=== PATIENT | female | born 1990 | race African-American/Black ===

== ENCOUNTER 2019-11-02 02:02 | Observation (INO) | payer SELFPAY ==
--- NOTE | 2019-11-02 02:30 | PDOC ---
History of Present Illness - General Chief Complaint: Pain Stated Complaint: ABD PAIN Time Seen by Provider: 11/02/19 02:30 History Source: Patient Exam Limitations: No Limitations - History of Present Illness Initial Comments: 11/02/19 02:40 29yF w PMHx ovarian cysts presenting w sudden onset suprapubic pain while sitting down 1hr ago. Recently completed period 2d ago. Didnt take any meds for pain. Has copper IUD in place. Denies fever, n/v, ABD distension, dysuria, vaginal discharge/bleeding. Past History - Medical History Allergies/Adverse Reactions: Allergies Allergy/AdvReac Type Severity Reaction Status Date / Time No Known Allergies Allergy Verified 11/02/19 02:30 - Reproductive History Is Patient Now?: No - Psycho-Social/Smoking History Smoking History: Never smoked Information on smoking cessation initiated: No - Substance Abuse Hx (Audit-C & DAST Scrn) How often the patient has a drink containing alcohol: Never Score: In Men: 4 or > Positive; In Women: 3 or > Positive: 0 Screen Result (Pos requires Nsg. Audit-10AR): Negative In the last yr the pt used illegal drug/Rx for NonMed reason: No Score: Yes response is considered Positive: 0 Screen Result (Positive result requires Nsg. DAST-10): Negative Review of Systems - Review of Systems Constitutional: No: Chills, Fever HEENTM: No: Eye Pain, Nose Pain Respiratory: No: Cough, Shortness of Breath Cardiac (ROS): No: Chest Pain, Lightheadedness ABD/GI: No: Nausea, Vomiting : No: Burning, Dysuria Musculoskeletal: No: Back Pain, Joint Pain Integumentary: No: Bruising, Dryness Neurological: No: Headache, Seizure Psychiatric: No: Anxiety, Depression Endocrine: No: Intolerance to Cold, Intolerance to Heat Hematologic/Lymphatic: No: Anemia, Blood Clots *Physical Exam - Vital Signs Last Vital Signs Temp Pulse Resp BP Pulse Ox 97.9 F 64 18 114/75 98 11/02/19 02:24 11/02/19 02:24 11/02/19 02:24 11/02/19 02:24 11/02/19 02:24 - Physical Exam General Appearance: Yes: Nourished, Appropriately Dressed, Moderate Distress HEENT: positive: EOMI, AL, Normal Voice, Hearing Grossly Normal. negative: Scleral Icterus (R), Scleral Icterus (L) Respiratory/Chest: positive: Lungs Clear, Normal Breath Sounds. negative: Chest Tender, Respiratory Distress Cardiovascular: positive: Regular Rhythm, Regular Rate, S1, S2. negative: Edema, Murmur Female Pelvic Exam: positive: normal external exam, cervical os closed, normal adnexa. negative: CMT, discharge, adnexal tenderness, vaginal bleeding Gastrointestinal/Abdominal: positive: Normal Bowel Sounds, Tender (mild suprapubic), Flat, Soft. negative: Organomegaly Musculoskeletal: negative: CVA Tenderness (R), CVA Tenderness (L) Integumentary: positive: Normal Color, Warm Neurologic: positive: Fully Oriented, Alert, Normal Response, Responsive ED Treatment Course - LABORATORY CBC & Chemistry Diagram: 11/02/19 03:00 11/02/19 03:00 Medical Decision Making - Medical Decision Making 11/02/19 03:38 pelvic exam - IUD strings present, closed cervical os, no vaginal discharge/blood, no cervical/ovarian tenderness TVUS - L ovary 2.3x0.9x1.2cm cystic process w small amount of free fluid, satisfactory perfusion, no torsion CT A/P - --- 29yF w PMHx ovarian cysts presenting w sudden onset suprapubic pain while sitting down 1hr ago Has UTI and possible L ruptured cyst on US. Low concern for kidney stone (- blood) vs ovarian torsion (neg US) vs (neg) Ordered CT A/P for persistent pain after meds given Given tylenol, 6 morphine, 1L NS, zofran, pain partially relieved Anticipate DC w keflex, supportive care Signed out to day team - pending CT A/P PO+IV contrast r/o appendicitis vs abscess - DC home w keflex, tylenol/ibuprofen, PCP f/u Discharge - Discharge Information Problems reviewed: Yes Clinical Impression/Diagnosis: Left ovarian cyst, Suprapubic pain UTI (urinary tract infection) Qualifiers: Urinary tract infection type: acute cystitis Hematuria presence: without hematuria Qualified Code(s): N30.00 - Acute cystitis without hematuria Condition: Improved - Follow up/Referral - Patient Discharge Instructions - Post Discharge Activity
--- NOTE | 2019-11-02 02:36 | PDOC ---
Attending Attestation - Resident Resident Name: Mohamud Spain - ED Attending Attestation I have performed the following: I have examined & evaluated the patient, The case was reviewed & discussed with the resident, I agree w/resident's findings & plan - HPI HPI: 11/02/19 03:21 see resident hpi - Physicial Exam PE: 11/02/19 03:21 see resident exam - Medical Decision Making 11/02/19 03:21 29-year-old female with sudden onset of right-sided pelvic pain and history of ovarian cyst in the past Patient has tenderness to the right lower quadrant region Plan for labs, urinalysis and pelvic US 11/02/19 03:22 11/02/19 06:41 Ultrasound showed no ovarian torsion or mass CT scan the abdomen and pelvis ordered We will sign out to dayshift pending results Discharge - Discharge Information Problems reviewed: Yes Clinical Impression/Diagnosis: Left ovarian cyst, Suprapubic pain UTI (urinary tract infection) Qualifiers: Urinary tract infection type: acute cystitis Hematuria presence: without hematuria Qualified Code(s): N30.00 - Acute cystitis without hematuria Condition: Improved - Follow up/Referral - Patient Discharge Instructions - Post Discharge Activity
[2019-11-02] MEDS ORDERED: SODIUM CHLORIDE 0.9% 500 ML INFUS.BAG IV ONE (02:40)
[2019-11-02] MEDS ORDERED: ACETAMINOPHEN 1000 MG/100 ML VIAL (NON FORMULARY) IVPB ONE (02:40)
[2019-11-02] MEDS ORDERED: ACETAMINOPHEN INJECTION 100 ML IVPB ONE (02:43)
[2019-11-02 02:53] VITALS: BMI 21.9
[2019-11-02 03:15] LABS: BASO % 0.5 % (0-2.0); EOS % 1.4 % (0-4.5); HEMATOCRIT 36.8 % (32.4-45.2); LYMPH % 34.3 % (8-40); MCH 28.3 pg (25.7-33.7); MCHC 32.7 g/dl (32.0-36.0); MEAN CELL VOLUME 86.5 fl (80-96); MONO % 7.6 % (3.8-10.2); NEUT % 56.2 % (42.8-82.8); PLATELET COUNT 258 K/MM3 (134-434); RBC 4.25 M/mm3 (3.60-5.2); RDW 13.4 % (11.6-15.6); WHITE BLOOD COUNT 7.8 K/mm3 (4.0-10.0)
[2019-11-02] MEDS ORDERED: morphine CARPU-JECT 4 MG/1 ML DISP.SYRIN IVPUSH ONE ×3 (03:34→09:52)
[2019-11-02] MEDS ORDERED: morphine SULFATE 4 MG/ML VIAL ONE ×2 (03:39→09:53)
[2019-11-02 03:43] LABS: ALBUMIN 3.9 g/dl (3.4-5.0); BLOOD UREA NITROGEN 15.1 mg/dL (7-18); CALCIUM 8.7 mg/dL (8.5-10.1); CREATININE 0.8 mg/dL (0.55-1.3); POTASSIUM 3.5 mmol/L (3.5-5.1); TOT PROT 7.1 g/dl (6.4-8.2)
[2019-11-02 03:44] LABS: EPI CELLS >36 /uL (0-25.1); HYALINE CASTS 7 /uL (0-3.1); URINE APPEARANCE CLOUDY; URINE BACTERIA 2953 /uL (0-1359); URINE BILIRUBIN NEGATIVE (NEGATIVE); URINE COLOR YELLOW; URINE GLUCOSE (UA) NEGATIVE (NEGATIVE); URINE KETONE NEGATIVE (NEGATIVE); URINE LEUK ESTERASE 3+ (NEGATIVE); URINE NITRITE NEGATIVE (NEGATIVE); URINE PROTEIN NEGATIVE (NEGATIVE); URINE RBC 11 /uL (0-23.9); URINE WBC 361 /uL (0-25.8)
[2019-11-02 04:21] LABS: BILIRUBIN,TOTAL 0.2 mg/dL (0.2-1)
[2019-11-02] MEDS ORDERED: MORPHINE SULFATE 2 MG/ML VIAL ONE ×2 (05:01→16:56)
[2019-11-02] MEDS ORDERED: ONDANSETRON 4 MG/2 ML VIAL IVPUSH ONE ×2 (05:24→10:01)
--- NOTE | 2019-11-02 07:13 | PDOC ---
*Physical Exam - Vital Signs Last Vital Signs Temp Pulse Resp BP Pulse Ox 98 F 78 17 114/66 98 11/02/19 06:13 11/02/19 06:13 11/02/19 06:13 11/02/19 06:13 11/02/19 06:13 ED Treatment Course - LABORATORY CBC & Chemistry Diagram: 11/02/19 03:00 11/02/19 03:00 - ADDITIONAL ORDERS Additional order review: Laboratory Results 11/02/19 11/02/19 11/02/19 03:00 03:00 03:00 Sodium 140 Potassium 3.5 Chloride 106 Carbon Dioxide 26 Anion Gap 8 BUN 15.1 Creatinine 0.8 Est GFR (CKD-EPI)AfAm 117.10 Est GFR (CKD-EPI)NonAf 101.04 Random Glucose 103 Lactic Acid 1.7 Calcium 8.7 Total Bilirubin 0.2 AST 13 L ALT 14 Alkaline Phosphatase 45 Total Protein 7.1 Albumin 3.9 Lipase 107 Urine Color Urine Appearance Urine pH Ur Specific [place] Urine Protein Urine Glucose (UA) Urine Ketones Urine Blood Urine Nitrite Urine Bilirubin Urine Urobilinogen Ur Leukocyte Esterase Urine WBC (Auto) Urine RBC (Auto) Urine Casts (Auto) U Epithel Cells (Auto) Urine Bacteria (Auto) Urine HCG, Qual Negative 11/02/19 03:00 Sodium Potassium Chloride Carbon Dioxide Anion Gap BUN Creatinine Est GFR (CKD-EPI)AfAm Est GFR (CKD-EPI)NonAf Random Glucose Lactic Acid Calcium Total Bilirubin AST ALT Alkaline Phosphatase Total Protein Albumin Lipase Urine Color Yellow Urine Appearance Cloudy Urine pH 6.0 Ur Specific [place] 1.019 Urine Protein Negative Urine Glucose (UA) Negative Urine Ketones Negative Urine Blood Trace Urine Nitrite Negative Urine Bilirubin Negative Urine Urobilinogen 1.0 Ur Leukocyte Esterase 3+ H Urine WBC (Auto) 361 Urine RBC (Auto) 11 Urine Casts (Auto) 7 U Epithel Cells (Auto) >36 Urine Bacteria (Auto) 2953 Urine HCG, Qual 11/02/19 03:00 RBC 4.25 MCV 86.5 MCHC 32.7 RDW 13.4 MPV 11.0 Neutrophils % 56.2 Lymphocytes % 34.3 Monocytes % 7.6 Eosinophils % 1.4 Basophils % 0.5 - RADIOLOGY Radiology Studies Ordered: Abdomen / Pelvis CT Radiograph Interpretation: EXAM: ABDOMEN \T\ PELVIS CT WITH CONTR HISTORY: Severe suprapubic pain. Rule out appendicitis versus abscess COMPARISON: Pelvic ultrasound same date 11/02/19 FINDINGS: The visualized portion of the lungs are clear. Liver, gallbladder, spleen, pancreas, adrenal glands, and left kidney appear normal. Moderate right hydronephrosis with hydroureter. Right ureterovesical junction stone, measuring 2.1 mm. There is delayed enhancement and excretion of contrast in the right kidney as compared to the left. Second punctate, 1 mm nonobstructing intrarenal stone in the superior pole. Small amount of perinephric fluid. The bladder is minimally distended, otherwise appears normal. Uterus appears normal. Small amount of pelvic free fluid. The bowel gas pattern is nonobstructive. The ap pendix is visualized, and appears normal. No pneumoperitoneum. The abdominal aorta is normal in course and caliber, without evidence of aneurysm or dissection. Two left renal veins are noted, 1 of which is retroaortic in course. No significant retroperitoneal lymphadenopathy. The osseous structures are grossly intact. IMPRESSION: 1. Moderate right hydroureteronephrosis with right ureterovesical junction stone measuring 2.1 mm. Small amount of perinephric fluid. 2. Nonobstructive bowel gas pattern. Normal-appearing appendix. One or more of the following dose reduction techniques were used: automated exposure control, adjustment of the mA and/or kV according to patient size, use of iterative reconstructive technique. THIS DOCUMENT HAS BEEN ELECTRONICALLY SIGNED Janice Vanessa MD 11/02/2019 05:36 EST - Medications Given in the ED: ED Medications Discontinued Medications Generic Name Dose Route Start Last Admin Trade Name Freq PRN Reason Stop Dose Admin Acetaminophen 1,000 mg 11/02/19 02:40 11/02/19 02:55 Ofirmev Injection - IVPB 11/02/19 02:41 1,000 mg ONCE ONE Administration Morphine Sulfate 4 mg 11/02/19 03:34 11/02/19 03:44 Morphine Injection - IVPUSH 11/02/19 03:35 4 mg ONCE ONE Administration Morphine Sulfate 2 mg 11/02/19 04:57 11/02/19 05:06 Morphine Injection - IVPUSH 11/02/19 04:58 2 mg ONCE ONE Administration Ondansetron HCl 4 mg 11/02/19 05:24 11/02/19 05:35 Zofran Injection IVPUSH 11/02/19 05:25 4 mg ONCE ONE Administration Sodium Chloride 1,000 ml 11/02/19 02:40 11/02/19 02:55 Normal Saline - IV 11/02/19 02:41 1,000 ml ONCE ONE Administration Medical Decision Making - Medical Decision Making pelvic exam - IUD strings present, closed cervical os, no vaginal discharge/bloo d, no cervical/ovarian tenderness TVUS - L ovary 2.3x0.9x1.2cm cystic process w small amount of free fluid, satisfactory perfusion, no torsion CT A/P - --- 29yF w PMHx ovarian cysts presenting w sudden onset suprapubic pain while sitting down 1hr ago Has UTI and possible L ruptured cyst on US. Low concern for kidney stone (- blood) vs ovarian torsion (neg US) vs (neg) Ordered CT A/P for persistent pain after meds given Given tylenol, 6 morphine, 1L NS, zofran, pain partially relieved Signed out from night team - pending CT A/P PO+IV contrast r/o appendicitis vs abscess - DC home w keflex, tylenol/ibuprofen, PCP f/u --- Abdomen/Pelvis CT: Moderate right hydroureteronephrosis with right ureterovesical junction stone measuring 2.1mm. Pt given 30mg IV Toradol and 1000mg IV Ceftriaxone 11/02/19 10:49 -Given 4mg IV zofran and 4mg IV morphine -Consulted Dr. Toney, Urologist, who advised me to start 0.4mg tamsulosin and would see patient -Pt will be admitted to m/s for complicated UTI w/ obstructed stone with intractable vomiting and pain Discharge - Discharge Information Problems reviewed: Yes Clinical Impression/Diagnosis: Left ovarian cyst, Suprapubic pain UTI (urinary tract infection) Qualifiers: Urinary tract infection type: acute cystitis Hematuria presence: without hematuria Qualified Code(s): N30.00 - Acute cystitis without hematuria Condition: Improved - Admission Yes - Follow up/Referral - Patient Discharge Instructions - Post Discharge Activity
[2019-11-02] MEDS ORDERED: KETOROLAC TROMETHAMINE 60 MG/2 ML VIAL IVPUSH ONE (07:17)
[2019-11-02] MEDS ORDERED: KETOROLAC TROMETHAMINE 30 MG/1 ML VIAL ONE (07:43)
[2019-11-02] MEDS ORDERED: CEFTRIAXONE 1,000 MG in DEXTROSE 5%-WATER - 50 ML IVPB ONE (09:12)
[2019-11-02] MEDS ORDERED: CEFTRIAXONE 1 GM/50 ML BAG ONE (09:22)
[2019-11-02] MEDS ORDERED: SODIUM CHLORIDE 1,000 ML IV STA (09:52)
--- NOTE | 2019-11-02 10:25 | HP ---
CHIEF COMPLAINT: suprapubic pain PCP: HISTORY OF PRESENT ILLNESS: 29 yo F w PMHx ovarian cysts presenting w/ sudden onset right continuos suprapubic and groin pain, 9/10 of few hour duration that began spontaneously and since persisted, associated with NBNB vomiting and nausea. Pt states that she was not performing any activities when the pain began. She recently completed her period 2d ago and states that her periods are regular, and 5 days of bleeding. No prior pregnancies or surgeries. She did not take any meds for pain. The has copper IUD in place. She was seen in the past in the hospital for pain related to her IUD and she was told she had a stable right ovarian cyst. Last saw her PRACTICE OFFICE ASSOCIATE in April but no comments were made about her right ovarian cyst. Denies fever, n/v, ABD distension, dysuria, vaginal discharge/bleeding. ER course was notable for: (1) CT a/p shows .3 cm distal right ureter obstruction UVJ stone w/ mild hydro (2) CT/ US also shows left free fluid small consistent with left cyst rupture (3) morphine Recent Travel: denies PAST MEDICAL HISTORY: ovarian cyst FHx: grandmother had breast cancer. Mother and Father has diabetes PAST SURGICAL HISTORY: denies Social History: Smoking: denies Alcohol: occasional Drugs: denies Allergies No Known Allergies Allergy (Verified 11/02/19 02:30) REVIEW OF SYSTEMS Constitutional: No: Chills, Fever HEENTM: No: Eye Pain, Nose Pain Respiratory: No: Cough, Shortness of Breath Cardiac (ROS): No: Chest Pain, Lightheadedness ABD/GI: No: Nausea, Vomiting : No: Burning, Dysuria Musculoskeletal: No: Back Pain, Joint Pain Integumentary: No: Bruising, Dryness Neurological: No: Headache, Seizure Psychiatric: No: Anxiety, Depression Endocrine: No: Intolerance to Cold, Intolerance to Heat Hematologic/Lymphatic: No: Anemia, Blood Clots PHYSICAL EXAMINATION Vital Signs - 24 hr 11/02/19 11/02/19 11/02/19 02:24 03:50 06:13 Temperature 97.9 F 98 F Pulse Rate 64 Pulse Rate [ 78 Left] Respiratory 18 17 Rate Blood Pressure 114/75 Blood Pressure 114/66 [Right Arm] O2 Sat by Pulse 98 97 98 Oximetry (%) 11/02/19 07:41 Temperature Pulse Rate Pulse Rate [ Left] Respiratory Rate Blood Pressure Blood Pressure [Right Arm] O2 Sat by Pulse 99 Oximetry (%) GENERAL: Awake, alert, and fully oriented, in mild distress and anxious EYES: Pupils equal, round and reactive to light, extraocular movements intact, sclera anicteric, EARS, NOSE, THROAT: Moist mucous membranes. NECK: Normal range of motion, supple without lymphadenopathy, JVD, or masses. LUNGS: Breath sounds equal, clear to auscultation bilaterally. No wheezes, and no crackles. HEART: Regular rate and rhythm, normal S1 and S2 without murmur, rub or gallop. ABDOMEN: lower abdominal and suprapubic pain on light palpation. RLQ pain on palpation. [place] negative. Rebound positive MUSCULOSKELETAL: Mild right CVA tenderness. UPPER EXTREMITIES: 2+ pulses, warm, well-perfused. No cyanosis. LOWER EXTREMITIES: 2+ pulses, warm, well-perfused. No peripheral edema. NEUROLOGICAL: Cranial nerves II-XII intact. Normal speech. Normal gait. PSYCHIATRIC: Cooperative. Good eye contact. Appropriate mood and affect. SKIN: Warm, dry, normal turgor Laboratory Results - last 24 hr 11/02/19 11/02/19 11/02/19 03:00 03:00 03:00 WBC 7.8 RBC 4.25 Hgb 12.0 Hct 36.8 MCV 86.5 MCH 28.3 MCHC 32.7 RDW 13.4 Plt Count 258 MPV 11.0 Absolute Neuts (auto) 4.4 Neutrophils % 56.2 Lymphocytes % 34.3 Monocytes % 7.6 Eosinophils % 1.4 Basophils % 0.5 Nucleated RBC % 0 Sodium Potassium Chloride Carbon Dioxide Anion Gap BUN Creatinine Est GFR (CKD-EPI)AfAm Est GFR (CKD-EPI)NonAf Random Glucose Lactic Acid Calcium Total Bilirubin AST ALT Alkaline Phosphatase Total Protein Albumin Lipase Urine Color Yellow Urine Appearance Cloudy Urine pH 6.0 Ur Specific [place] 1.019 Urine Protein Negative Urine Glucose (UA) Negative Urine Ketones Negative Urine Blood Trace Urine Nitrite Negative Urine Bilirubin Negative Urine Urobilinogen 1.0 Ur Leukocyte Esterase 3+ H Urine WBC (Auto) 361 Urine RBC (Auto) 11 Urine Casts (Auto) 7 U Epithel Cells (Auto) >36 Urine Bacteria (Auto) 2953 Urine HCG, Qual Negative 11/02/19 11/02/19 03:00 03:00 WBC RBC Hgb Hct MCV MCH MCHC RDW Plt Count MPV Absolute Neuts (auto) Neutrophils % Lymphocytes % Monocytes % Eosinophils % Basophils % Nucleated RBC % Sodium 140 Potassium 3.5 Chloride 106 Carbon Dioxide 26 Anion Gap 8 BUN 15.1 Creatinine 0.8 Est GFR (CKD-EPI)AfAm 117.10 Est GFR (CKD-EPI)NonAf 101.04 Random Glucose 103 Lactic Acid 1.7 Calcium 8.7 Total Bilirubin 0.2 AST 13 L ALT 14 Alkaline Phosphatase 45 Total Protein 7.1 Albumin 3.9 Lipase 107 Urine Color Urine Appearance Urine pH Ur Specific [place] Urine Protein Urine Glucose (UA) Urine Ketones Urine Blood Urine Nitrite Urine Bilirubin Urine Urobilinogen Ur Leukocyte Esterase Urine WBC (Auto) Urine RBC (Auto) Urine Casts (Auto) U Epithel Cells (Auto) Urine Bacteria (Auto) Urine HCG, Qual ASSESSMENT/PLAN: 29 yo F w PMHx ovarian cysts presenting w/ sudden onset right continuos supra pubic and groin pain, 9/10 of few hour duration that began spontaneously and since persisted, associated with NBNB vomiting and nausea is admitted for Intractable pain 2/2 to right nephrolithiasis w/ mild hydro #Intractable pain 2/2 to right nephrolithiasis w/ mild hydro CT showing right UVJ stone .3 cm in the distal ureter- obstructing also showing right ovarian cyst rupture consistent with transvaginal US UA positive but likely contaminated >35 epithelial cells Urology consulted- Dr. Myrick to see pt Started on flomax .4mg 1g ceftriaxone given IVF at 100 Morphine Q4H Toradol 15 tylenol as needed will f/u uro recom cont to monitor or obs #DVT ppx scds FEN IVF at 100 monitor lytes NPO for now Dispo: f/u uro recom, cont IVF, cont pain control ATTENDING PHYSICIAN STATEMENT I saw and evaluated the patient. I reviewed the resident's note and discussed the case with the resident. I agree with the resident's findings and plan as documented. SUBJECTIVE: OBJECTIVE: ASSESSMENT AND PLAN:
[2019-11-02] MEDS ORDERED: TAMSULOSIN HCL 0.4 MG CAP PO ONE (10:49)
[2019-11-02] MEDS ORDERED: MORPHINE SULFATE 2 MG/ML VIAL IVPUSH PRN (10:56)
[2019-11-02] MEDS ORDERED: ACETAMINOPHEN 325 MG TABLET (FP) PO PRN (10:56)
[2019-11-02] MEDS ORDERED: SODIUM CHLORIDE 1,000 ML IV SCH ×2 (11:00→11:29)
[2019-11-02] MEDS ORDERED: TAMSULOSIN HCL 0.4 MG CAP ONE (11:21)
--- NOTE | 2019-11-02 11:34 | PN ---
Teaching Attending Note Name of Resident: Deangelo Tillman ATTENDING PHYSICIAN STATEMENT I saw and evaluated the patient. I reviewed the resident's note and discussed the case with the resident. I agree with the resident's findings and plan as documented. SUBJECTIVE: 29yo F with h/o previous ovarian cysts who presents today with sudden onset pelvic pain. Patient reports pain started about 1hr prior to presentation suddenly while she was sitting on the couch. Patient reports the pain does not radiate anywhere and at its peak was 8/10 and sharp. Patient noted to have prior abdominal pain related to ovarian cyst, however this intensity was worse. Patient reports she saw her last competitive intelligence analyst April and she has a copper IUD implanted. Patient has never had prior nephrolithiasis and has not had any prior workup for high calcium levels in the blood. Patient reports feeling slightly improved with mild-mod discomfort ongoing. While she was hospitalized she had one episode of NB/NB vomiting, however she has not had any more episodes since. Pt denies fever/chills, lightheadedness/dizziness, SOB, CP/discomfort, palpitations, diarrhea/constipation. LMP: Finished her normal cycle with normal flow 2 days prior PSHx: None SoHx: Denies tobacco, alcohol, and drugs FamHx: No history of nephrolithiasis or bone diseases. Grandmother had breast ca (unknown type). Mother and Father have DM OBJECTIVE: Vital Signs Temperature 98 F 11/02/19 06:13 Pulse Rate 78 11/02/19 06:13 Respiratory Rate 17 11/02/19 06:13 Blood Pressure 114/66 11/02/19 06:13 O2 Sat by Pulse Oximetry (%) 99 11/02/19 07:41 PE: Gen: NAD, awake, alert and oriented x3 HEENT: NC/AT, CLAUDIO, MMM LUNG: CTA b/l without wheezes or rales CARD: RRR no murmurs, S1/S2 normal ABD: Soft, nondistended, tenderness RLQ > RUQ without any guarding or rebound. Normoactive BS, no hepatomegaly, no CVA tenderness at time of exam EXT: 2+ distal pulses b/l, no edema CBC, BMP 11/02/19 03:00 11/02/19 03:00 Active Medications Acetaminophen (Tylenol -) 650 mg PO Q4H PRN PRN Reason: PAIN LEVEL 1-5 Sodium Chloride (Normal Saline -) 1,000 mls @ 83 mls/hr IV ASDIR CHITRA Last Admin: 11/02/19 11:20 Dose: 83 mls/hr Documented by: Morphine Sulfate (Morphine Sulfate) 2 mg IVPUSH Q4H PRN PRN Reason: PAIN LEVEL 7 - 10 ASSESSMENT AND PLAN: Intractable pain 2/2 nephrolithiasis vs. ruptured ovarian cyst Nephrolithiasis with hydronephrosis Questionably pyuria with bacteruria --Patient with intractable pain secondary to the above --Pain was not alleviated with APAP and alleviated with morphine therapy given in ED --0.3cm nephrolithiasis likely to pass by itself, however hydronephrosis is suspicious --Pt will be evaluated by Dr. Toney called by ED --Continue IVF to help facilitate passing of nephrolithiasis --Tylenol PRN alternating with Toradol PRN --If severe pain can use Morphine 2mg q6h PRN --Repeat UA; given high amount of epithelial cells in original sample unclear whether it is influencing the results --Reflex UCx if repeat is positive UTI Dispo: Observation med/surg; if cleared by urology and patient able to tolerate pain with PO medications can be discharged later in day DO Jeremy Aburto
[2019-11-02] MEDS ORDERED: KETOROLAC TROMETHAMINE 15 MG/ML VIAL IVPUSH ONE (12:30)
[2019-11-02] MEDS ORDERED: KETOROLAC TROMETHAMINE 15 MG/ML VIAL ONE (13:28)
--- NOTE | 2019-11-02 15:26 | EKG ---
Test Reason : Blood Pressure : / mmHG Vent. Rate : 087 BPM Atrial Rate : 087 BPM P-R Int : 136 ms QRS Dur : 072 ms QT Int : 360 ms P-R-T Axes : 048 061 009 degrees QTc Int : 433 ms NORMAL SINUS RHYTHM NORMAL ECG NO PREVIOUS ECGS AVAILABLE Confirmed by DELMY BARAJAS MD ([id number]) on 11/02/2019 3:25:52 PM Referred By: Confirmed By:DELMY BARAJAS MD
--- NOTE | 2019-11-02 17:01 | DS ---
Physical Exam: SUBJECTIVE: Patient's pain improved, however still present. Would like to go home with pain medication if possible. OBJECTIVE: Vital Signs Period Temp Pulse Resp BP Sys/Amaya Pulse Ox Last 24 Hr 97.9 F-98 F 64-79 17-18 114-116/66-79 97-99 PHYSICAL EXAM See prior note from today LABS Laboratory Results - last 24 hr 11/02/19 11/02/19 11/02/19 03:00 03:00 03:00 WBC 7.8 RBC 4.25 Hgb 12.0 Hct 36.8 MCV 86.5 MCH 28.3 MCHC 32.7 RDW 13.4 Plt Count 258 MPV 11.0 Absolute Neuts (auto) 4.4 Neutrophils % 56.2 Lymphocytes % 34.3 Monocytes % 7.6 Eosinophils % 1.4 Basophils % 0.5 Nucleated RBC % 0 Sodium Potassium Chloride Carbon Dioxide Anion Gap BUN Creatinine Est GFR (CKD-EPI)AfAm Est GFR (CKD-EPI)NonAf Random Glucose Lactic Acid Calcium Total Bilirubin AST ALT Alkaline Phosphatase Total Protein Albumin Lipase Urine Color Yellow Urine Appearance Cloudy Urine pH 6.0 Ur Specific [place] 1.019 Urine Protein Negative Urine Glucose (UA) Negative Urine Ketones Negative Urine Blood Trace Urine Nitrite Negative Urine Bilirubin Negative Urine Urobilinogen 1.0 Ur Leukocyte Esterase 3+ H Urine WBC (Auto) 361 Urine RBC (Auto) 11 Urine Casts (Auto) 7 U Epithel Cells (Auto) >36 Urine Bacteria (Auto) 2953 Urine HCG, Qual Negative 11/02/19 11/02/19 03:00 03:00 WBC RBC Hgb Hct MCV MCH MCHC RDW Plt Count MPV Absolute Neuts (auto) Neutrophils % Lymphocytes % Monocytes % Eosinophils % Basophils % Nucleated RBC % Sodium 140 Potassium 3.5 Chloride 106 Carbon Dioxide 26 Anion Gap 8 BUN 15.1 Creatinine 0.8 Est GFR (CKD-EPI)AfAm 117.10 Est GFR (CKD-EPI)NonAf 101.04 Random Glucose 103 Lactic Acid 1.7 Calcium 8.7 Total Bilirubin 0.2 AST 13 L ALT 14 Alkaline Phosphatase 45 Total Protein 7.1 Albumin 3.9 Lipase 107 Urine Color Urine Appearance Urine pH Ur Specific [place] Urine Protein Urine Glucose (UA) Urine Ketones Urine Blood Urine Nitrite Urine Bilirubin Urine Urobilinogen Ur Leukocyte Esterase Urine WBC (Auto) Urine RBC (Auto) Urine Casts (Auto) U Epithel Cells (Auto) Urine Bacteria (Auto) Urine HCG, Qual HOSPITAL COURSE: Date of Admission:11/02/19 Date of Discharge: 11/02/19 Pt was observed for short stay due to abdominal pain RLQ found to have 0.3cm nephrolithiasis with minimal hydronephrosis and ruptured ovarian cyst after her menstration 2 days prior. Patient has intractable pain requiring higher degrees of pain medication and was observed with IVF hydration and flomax to facility her nephrolith passage. Patient did not exhibit acute kidney injury during her routine labs. Patient's pain improved slightly with pain medication and she hoped to go home. Patient is being discharged in stable condition with toradol for her nephrolith with instructions to follow-up with her physician and urology. Patient was warned that if she develops fever, her pain is consistently worse in intensity without any unremitting factors, if she develops elise hematuria, or if her urine output decreases she should return to the ER immediately. Patient's medications were sent to [facility] at their request. Minutes to complete discharge: 33 Discharge Summary Problems reviewed: Yes Reason For Visit: UTI,SUPRAPUBIC PAIN Current Active Problems Left ovarian cyst (Acute) Suprapubic pain (Acute) UTI (urinary tract infection) (Acute) Condition: Improved - Instructions Referrals: Primo Toney MD [Staff Physician] - Wilber Mcneal MD [Staff Physician] - Disposition: HOME - Home Medications Comprehensive Discharge Medication List: Ambulatory Orders Ketorolac Tromethamine [Toradol] 10 mg PO Q6H #40 tablet 11/02/19 Tamsulosin HCl [Flomax] 0.4 mg PO DAILY #7 capsule 11/02/19 This patient is new to me today: Yes Date on this admission: 11/02/19 Emergency Visit: Yes ED Registration Date: 11/02/19 Care time: The patient presented to the Emergency Department on the above date and was hospitalized for further evaluation of their emergent condition. Critical Care patient: No - Discharge Referral Referred to [facility] No
[2019-11-02 17:21] VITALS: BP 113/71; PULSE 91; TEMP 97.5
== END 2019-11-02 17:30 | disposition home or self-care (01) ==
LOC: JER 02:02 → JERBED 10:07 → INTOOBSV 10:07 → UNDOADMOB 10:07 → JERBED 11:21
PROVIDERS: ADMIT Internal Medicine; ATTEND Internal Medicine
PROC: 3E0337Z Introduction of Electrolytic and Water Balance Substance into Peripheral Vein, Percutaneous Approach (ICD-10-PCS; principal; 2019-11-02)
PROC: 3E033NZ Introduction of Analgesics, Hypnotics, Sedatives into Peripheral Vein, Percutaneous Approach (ICD-10-PCS; 2019-11-02)
PROC: 3E033GC Introduction of Other Therapeutic Substance into Peripheral Vein, Percutaneous Approach (ICD-10-PCS; 2019-11-02)
PROC: 3E03329 Introduction of Other Anti-infective into Peripheral Vein, Percutaneous Approach (ICD-10-PCS; 2019-11-02)
DX: N30.00 Acute cystitis without hematuria (principal); N83.202 Unspecified ovarian cyst, left side; R10.30 Lower abdominal pain, unspecified
CPT/HCPCS: 36415; 74177-TC; 76830-TC; 80053; 81003; 83605; 83690; 84703; 85025; 87086; 87186; 93005; 93010; 99285-25; G0378; J0131; U0003